=== PATIENT | male | born 1985 ===

== ENCOUNTER 2023-04-08 08:10 | Outpatient (CLI) | payer BC ==
[2023-04-08 09:01] LABS: #Eosinphils 0.1 10x3/uL (0.0-0.5); #Monocytes 0.4 10x3/uL (0.0-1.1); #Neutrophils 2.5 10x3/uL (1.5-8.4); %Basophils 0.7 % (0.0-2.0); %Lymphocytes 33.3 % (18.0-47.0); %Monocytes 8.1 % (0.0-10.0); %Neutrophils 55.7 % (40.0-75.0); Hematocrit 42.5 % (38.8-50.0); Hemoglobin 14.5 g/dL (13.5-17.5); Mean Corpuscular HGB CONC 34.1 g/dL (32.0-36.0); Mean Corpuscular Hemoglobin 31.5 pg (27.0-33.0); Mean Corpuscular Volume 92.2 fl (81.2-95.1); Mean Platelet Volume 10.2 fl (7.4-10.4); Platelet Count 240 10x3/uL (150-450); RBC Distribution Width 12.4 % (11.5-14.5); Red Blood Cell (RBC) Count 4.61 10x6/uL (4.32-5.72); White Blood Cell (WBC) Count 4.4 10x3/uL (3.5-10.5)
[2023-04-08 09:07] LABS: ALT (SGPT) 15 U/L (8-55); AST (SGOT) 17 U/L (5-34); Albumin 4.5 g/dL (3.5-5.0); Alkaline Phosphatase 45 U/L (40-110); Anion Gap 13 mmol/L (10-20); BUN (Urea Nitrogen) 6 mg/dL (8.9-20.6); Bilirubin Neg (Negative); Bilirubin, Total 0.5 mg/dL (0.2-1.2); Blood, Urine Negative (Negative); Calc. Creatinine Clearance 0 mL/min (70-130); Calcium 9.1 mg/dL (7.8-10.44); Carbon Dioxide 25 mmol/L (22-29); Chloride 105 mmol/L (98-107); Clarity Clear (Clear); Estimated GFR 84; Globulin 2.2 g/dL (2.4-3.5); Glucose 99 mg/dL (70-105); Glucose, Urine (Dipstick) Normal (Negative); Ketone, Urine Negative (Negative); Leukocyte Negative (Negative); Nitrite Negative (Negative); Potassium 4.1 mmol/L (3.5-5.1); Protein, Total 6.7 g/dL (6.0-8.3); Protein, Urine (Dipstick) Negative (Neg-Trace); Sodium 139 mmol/L (136-145); Specific Gravity, Urine 1.005 (1.005-1.030); Urobilinogen Normal mg/dL (Less than 2)
[2023-04-08 09:33] LABS: Bacteria/HPF None Seen HPF (None Seen); RBC/HPF 0-3 HPF (0-3); Squamous Epithelial None Seen HPF (0-3); WBC/HPF None Seen HPF (0-3)
[2023-04-08 10:47] LABS: Cardiac Risk 3.5 (Less than 4.5); Cholesterol 189 mg/dl (< 200 Desired); HDL Cholesterol 54 mg/dL (>60 Neg Risk); LDL Cholesterol, Calculated 114 mg/dL; Triglycerides 103 mg/dL (Less than 150)
== END 2023-04-08 08:11 | disposition home or self-care (01) ==
LOC: LABBT 08:10
PROVIDERS: ATTEND Specialist
DX: Z01.812 Encounter for preprocedural laboratory examination (principal); K42.9 Umbilical hernia without obstruction or gangrene
CPT/HCPCS: 80053; 80061; 81001; 85025

== ENCOUNTER 2023-04-12 09:12 | Day surgery (SDC) | payer BC ==
[2023-04-08 08:34] VITALS: BMI 31.4
[2023-04-12] MEDS ORDERED: Bupivacaine 0.25% HCL 30 ML VIAL ONE (09:45)
[2023-04-12] MEDS ORDERED: EPINEPHrine 1 MG/ML AMP ONE (09:45)
[2023-04-12] MEDS ORDERED: Ketorolac Tromethamine 30 MG/ML VIAL ONE (10:18)
[2023-04-12] MEDS ORDERED: Acetaminophen 500 MG TAB ONE (10:18)
[2023-04-12] MEDS ORDERED: Sodium Chloride 0.9% 100 ML ONE (11:18)
[2023-04-12] MEDS ORDERED: CEFAZOLIN 2 GM VIAL ONE (11:18)
[2023-04-12] MEDS ORDERED: fentaNYL 50 mcg/mL 1 mL Vial ONE (11:30)
[2023-04-12] MEDS ORDERED: fentaNYL PF 100 MCG/2 ML SYRINGE ONE (11:31)
[2023-04-12] MEDS ORDERED: Ondansetron PF 4 MG/2 ML Vial ONE (11:31)
[2023-04-12] MEDS ORDERED: ePHEDrine Sulfate 50 MG/10 ML VIAL ONE (11:31)
[2023-04-12] MEDS ORDERED: Glycopyrrolate 0.2 MG/ML 5 ML SYRINGE ONE (11:31)
[2023-04-12] MEDS ORDERED: PROPOFOL 200 MG/20 ML VIAL ONE (11:31)
[2023-04-12] MEDS ORDERED: Lidocaine 1% PF 5 ML VIAL ONE (11:31)
[2023-04-12] MEDS ORDERED: Meperidine HCl/PF 25 MG/ML VIAL ONE (12:36)
== END 2023-04-12 14:08 | disposition home or self-care (01) ==
LOC: SDC 09:12
PROVIDERS: ATTEND Specialist
PROC: 0WUF0JZ Supplement Abdominal Wall with Synthetic Substitute, Open Approach (ICD-10-PCS; principal; 2023-04-12)
DX: K42.9 Umbilical hernia without obstruction or gangrene (principal); Z98.890 Other specified postprocedural states; F17.290 Nicotine dependence, other tobacco product, uncomplicated; Z91.048 Other nonmedicinal substance allergy status; Z79.899 Other long term (current) drug therapy
CPT/HCPCS: J0171; J1885; J2175; J2405; J2704; J3010; J3490; S0020